=== PATIENT | male | born 1975 | race Caucasian/White ===

== ENCOUNTER 2016-10-10 23:10 | Day surgery (SDC) | payer OTHER ==
[~2016-10-10] VITALS: Ht 188 cm; Wt 93.5 kg
[~2016-10-10 23:10] MED LIST: ASPIR-LOW81 MG PO; FLEXERIL5 MG PO; IBUPROFEN800 MG PO; NITROGLYCERIN0.4 MG SL; TYLENOL REGULA325 MG PO
[2016-10-10 23:49] LABS: HEMATOCRIT 42.7 % (38.0-50.0); MCH 30.8 PG (29.0-34.0); MCHC 34.4 G/DL (30.0-36.0); MCV 89.5 FL (86-99); MEAN PLAT.VOLUME 9.4 uM^3 (9.0-12.4); PLATELET COUNT 291 K/uL (156-360); RBC DIS.WIDTH-CV 12.6 % (11.8-14.6); RBC DIS.WIDTH-SD 41.6 % (39-53); RED BLOOD COUNT 4.77 M/uL (4.00-5.50); WHITE BLOOD COUNT 14.9 K/uL (4.1-10.2)
[2016-10-10 23:51] LABS: ADD MIUA? YES; BILIRUBIN NEGATIVE; BLOOD NEGATIVE; COLOR YELLOW ((YELLOW)); GLUCOSE (STRIP) NEGATIVE; KETONES NEGATIVE; LEUKOCYTES NEGATIVE; NITRITE NEGATIVE; PROTEIN (STRIP) 30; SPECIFIC GRAVITY 1.023 (1.000-1.030); UROBILINOGEN 0.2 MG/DL (0.2-1.0)
[2016-10-11 00:02] LABS: CHLORIDE 103 mEq/L (99-109); POTASSIUM 4.2 mEq/L (3.7-5.4); SODIUM 137 mEq/L (136-147)
[2016-10-11 00:05] LABS: GLUCOSE 115 mg/dL (70-99)
[2016-10-11 00:06] LABS: ANION GAP 11 MEQ/L (2-14); TOTAL BILIRUBIN 0.3 mg/dL (0.0-1.0)
[2016-10-11 00:08] LABS: ALKALINE PHOSPHATASE 70 IU/L (3-129); GFR ESTIMATE (CALCULATED) > 59 mL/min/
[2016-10-11 00:09] LABS: UREA NITROGEN (BUN) 14 mg/dL (9-23)
[2016-10-11 00:13] LABS: AMORPHOUS URATES CRYSTALS 3+; BACTERIA NONE SEEN /HPF; CASTS NONE SEEN /LPF; CRYSTALS PRESENT; EPITHELIAL CELLS RARE /HPF; MUCUS NONE SEEN /LPF; RED BLOOD CELLS NONE SEEN /HPF (0-5); UCUL ADDED? NO; WHITE BLOOD CELLS NONE SEEN /HPF (0-5)
[2016-10-11 00:22] LABS: LIPASE 20 U/L (1.0-51.0)
[2016-10-11] MEDS ORDERED: SIMVASTATIN10 MG PO (01:50)
[2016-10-11] MEDS ORDERED: FLEXERIL10 MG PO (01:50)
[2016-10-11] MEDS ORDERED: LISINOPRIL10 MG PO (01:50)
[2016-10-11] MEDS ORDERED: ACID REDUCER 1150 MG PO (01:51)
[2016-10-11 05:31] VITALS: BP 149/83
[2016-10-11 07:55] VITALS: BP 124/69
[2016-10-11 11:29] VITALS: BP 119/68
[2016-10-11 16:08] VITALS: BP 115/63
== END 2016-10-11 17:45 | disposition home or self-care (01) ==
LOC: EME 23:10 → RME 23:10 → SDC 10-11 03:29 → 2SOUTH 10-11 04:00 → 2EASTP 10-11 05:01
PROC: 0DTJ4ZZ Resection of Appendix, Percutaneous Endoscopic Approach (ICD-10-PCS; principal; 2016-10-11)
DX: K35.80 Unspecified acute appendicitis (principal); I10 Essential (primary) hypertension; F17.210 Nicotine dependence, cigarettes, uncomplicated; Z79.82 Long term (current) use of aspirin
CPT/HCPCS: 74176; 80053; 81003; 83690; 85027; 88304; 93005; 99281; 99285; G0378; J0330; J1100; J1170; J1335; J1885; J2270; J2405; J2710; J3010; J7030

== ENCOUNTER 2017-03-21 17:33 | Day surgery (SDC) | payer OTHER ==
[~2017-03-21] VITALS: Ht 190.5 cm; Wt 92.1 kg
[~2017-03-21 17:33] MED LIST changes: +ACID REDUCER 1150 MG PO; +FLEXERIL10 MG PO; +LISINOPRIL10 MG PO; +SIMVASTATIN10 MG PO
[2017-03-21 18:28] LABS: HEMATOCRIT 40.5 % (38.0-50.0); MCHC 34.8 G/DL (30.0-36.0); MEAN PLAT.VOLUME 9.6 uM^3 (9.0-12.4); PLATELET COUNT 257 K/uL (156-360); RBC DIS.WIDTH-CV 13.2 % (11.8-14.6); RED BLOOD COUNT 4.55 M/uL (4.00-5.50); WHITE BLOOD COUNT 11.2 K/uL (4.1-10.2)
[2017-03-21 18:37] LABS: CHLORIDE 105 mEq/L (99-109); SODIUM 137 mEq/L (136-147)
[2017-03-21 18:38] LABS: GLUCOSE 87 mg/dL (70-99)
[2017-03-21 18:40] LABS: ANION GAP 10 MEQ/L (2-14)
[2017-03-21 18:42] LABS: GFR ESTIMATE (CALCULATED) > 59 mL/min/
[2017-03-21 18:43] LABS: UREA NITROGEN (BUN) 11 mg/dL (9-23)
[2017-03-21] MEDS ORDERED: LOW DOSE ASPIRI81 M1 PO (20:08)
[2017-03-21] MEDS ORDERED: VITAMIN D5000 UNI1 PO (20:08)
[2017-03-21] MEDS ORDERED: LYRICA50 MG PO (20:08)
[2017-03-21] MEDS ORDERED: FISH OIL 1,0001 EAC7 PO (20:09)
[2017-03-21] MEDS ORDERED: MAGNESIUM OXID200 MG PO (20:09)
[2017-03-21] MEDS ORDERED: NORVASC5 MG PO (20:09)
[2017-03-21] MEDS ORDERED: CYMBALTA30 MG PO (20:09)
[2017-03-22 00:26] VITALS: BP 134/83
[2017-03-22 02:50] VITALS: BP 129/75
[2017-03-22 08:27] VITALS: BP 110/73
[2017-03-22] MEDS ORDERED: KEFLEX500 MG PO (09:52)
[2017-03-22] MEDS ORDERED: PEN-VEE K,VEET500 MG PO (09:52)
[2017-03-22] MEDS ORDERED: ULTRAM50 MG PO (09:54)
== END 2017-03-22 11:20 | disposition home or self-care (01) ==
LOC: EME 17:33 → ENRESERV 20:30 → SDC 20:33 → EME 20:33 → ENRESERV 20:40 → 2EAST 20:55 → 2SOUTH 20:55 → 2EAST 22:54
PROVIDERS: Physician Assistant Medical
DX: S61.451A Open bite of right hand, initial encounter (principal); S64.490A Injury of digital nerve of right index finger, initial encounter; S66.821A Laceration of other specified muscles, fascia and tendons at wrist and hand level, right hand, initial encounter; S61.431A Puncture wound without foreign body of right hand, initial encounter; L03.113 Cellulitis of right upper limb; M00.9 Pyogenic arthritis, unspecified; M65.9 Synovitis and tenosynovitis, unspecified; W54.0XXA Bitten by dog, initial encounter; Z79.82 Long term (current) use of aspirin; Z23 Encounter for immunization
CPT/HCPCS: 73130; 80048; 83605; 85027; 87040; 87070; 87077; 87205; 99281; 99285; G0378; J0690; J1170; J1885; J2405; J2540; J7030; J7050

== ENCOUNTER 2017-06-14 18:30 | Emergency (ER) | payer OTHER ==
[~2017-06-14] VITALS: Ht 188 cm; Wt 90.9 kg
[~2017-06-14 18:30] MED LIST changes: +CYMBALTA30 MG PO; +FISH OIL 1,0001 EAC7 PO; +KEFLEX500 MG PO; +LOW DOSE ASPIRI81 M1 PO; +LYRICA50 MG PO; +MAGNESIUM OXID200 MG PO; +NORVASC5 MG PO; +PEN-VEE K,VEET500 MG PO; +ULTRAM50 MG PO; +VITAMIN D5000 UNI1 PO
[2017-06-14 19:25] LABS: HEMOGLOBIN 14.6 G/DL (12.5-16.6); MCH 31.1 PG (29.0-34.0); MCHC 34.8 G/DL (30.0-36.0); MCV 89.4 FL (86-99); PLATELET COUNT 255 K/uL (156-360); RBC DIS.WIDTH-SD 42.5 % (39-53); WHITE BLOOD COUNT 10.3 K/uL (4.1-10.2)
[2017-06-14 19:35] LABS: ALBUMIN 4.6 g/dL (3.2-4.8); CHLORIDE 104 mEq/L (99-109); POTASSIUM 4.2 mEq/L (3.7-5.4); SODIUM 137 mEq/L (136-147)
[2017-06-14 19:38] LABS: GLUCOSE 101 mg/dL (70-99)
[2017-06-14 19:40] LABS: TOTAL BILIRUBIN 0.4 mg/dL (0.0-1.0)
[2017-06-14 19:41] LABS: ALKALINE PHOSPHATASE 73 IU/L (3-129); CREATININE 0.8 mg/dL (0.6-1.3); GFR ESTIMATE (CALCULATED) > 59 mL/min/ (58.99-99999)
[2017-06-14 19:42] LABS: UREA NITROGEN (BUN) 17 mg/dL (9-23)
[2017-06-14 19:43] LABS: AST (GOT) 17 IU/L (2-34)
[2017-06-14 19:44] LABS: ALT (GPT) 22 IU/L (3-49)
[2017-06-14 20:11] LABS: APPEARANCE CLEAR ((CLEAR)); BILIRUBIN NEGATIVE; BLOOD NEGATIVE; COLOR YELLOW ((YELLOW)); GLUCOSE (STRIP) NEGATIVE; KETONES NEGATIVE; LEUKOCYTES NEGATIVE; NITRITE NEGATIVE; PROTEIN (STRIP) NEGATIVE; SPECIFIC GRAVITY 1.011 (1.000-1.030); UCUL ADDED? NO; UROBILINOGEN 0.2 MG/DL (0.2-1.0)
[2017-06-15] MEDS ORDERED: BENTYL10 MG PO (02:33)
[2017-06-15 02:50] VITALS: BP 124/77
== END 2017-06-15 02:50 | disposition home or self-care (01) ==
LOC: EME 18:30
DX: J06.9 Acute upper respiratory infection, unspecified (principal); R10.9 Unspecified abdominal pain; R19.7 Diarrhea, unspecified; F17.200 Nicotine dependence, unspecified, uncomplicated; I10 Essential (primary) hypertension; K21.9 Gastro-esophageal reflux disease without esophagitis; Z87.442 Personal history of urinary calculi; Z90.49 Acquired absence of other specified parts of digestive tract; Z79.82 Long term (current) use of aspirin
CPT/HCPCS: 71046; 74176; 80053; 81003; 85027; 87502; 99281; 99285; J1885